=== PATIENT | female | born 1955 | race Caucasian/White ===

== ENCOUNTER 2023-09-20 07:00 | Day surgery (SDC) | payer MEDICARE, BC ==
[~2023-09-20] VITALS: Ht 167.6 cm; Wt 59.0 kg
[2023-09-20] VITALS (8 sets, daily range): BP systolic 102–116; BP diastolic 63–73; PULSE 72–84; RESP 13–21; TEMP 97.8; O2SAT 93–99
[~2023-09-20 07:00] MED LIST: ACYC200C22 PO; ASPI-543 PO; BIOT1SUB SL; COEN150C4 PO; CYAN1TAB11 PO; FLAX100024 PO; LACTCAP35 PO; METO25TA93 PO; MISC1TAB PO; MULT-1179 PO; OMEP1CAP70 PO; POLYSOL2 EACHEYE; POM; ROSU5TAB5 PO; SILD20TA12 PO; TURM500C3 PO
[2023-09-20] MEDS ORDERED: LIDOCAINE 2%HCL (LOCAL ANESTH.) INJ 20ML MDV ONE ×2 (07:39→10:04)
[2023-09-20] MEDS ORDERED: IOHEXOL 350 MG/ML 100ML IJ ONE (07:40)
[2023-09-20] MEDS ORDERED: HEPARIN IN NS 1000Units/500mL 1,500 ML ONE (07:40)
[2023-09-20] MEDS ORDERED: IODIXANOL 320MG/ML 100ML BTL IV ONE ×2 (07:40→10:04)
[2023-09-20] MEDS ORDERED: HEPARIN SODIUM (PORCINE) 5000 UNITS/ML 1ML VIAL ONE (10:03)
[2023-09-20] MEDS ORDERED: VERAPAMIL 2.5MG/ML INJ 2ML VIAL IV ONE (10:03)
[2023-09-20] MEDS ORDERED: ANGIOMAX 250 MG VIAL IV ONE (10:03)
[2023-09-20] MEDS ORDERED: SODIUM CHL 0.9% 0 ML ONE (10:04)
[2023-09-20] MEDS ORDERED: fentaNYL CITRATE 100 MCG/2 ML VL ONE (10:04)
[2023-09-20] MEDS ORDERED: MIDAZOLAM HCL 2MG/2ML 2ml VIAL (1mg/ml) ONE (10:04)
== END 2023-09-20 13:38 | disposition home or self-care (01) ==
LOC: CATH 07:00
PROVIDERS: ATTEND Internal Medicine Cardiovascular Disease
DX: I25.10 Atherosclerotic heart disease of native coronary artery without angina pectoris (principal); K21.9 Gastro-esophageal reflux disease without esophagitis; E78.5 Hyperlipidemia, unspecified; E03.9 Hypothyroidism, unspecified; I12.9 Hypertensive chronic kidney disease with stage 1 through stage 4 chronic kidney disease, or unspecified chronic kidney disease; N18.9 Chronic kidney disease, unspecified; Z86.718 Personal history of other venous thrombosis and embolism; Z79.82 Long term (current) use of aspirin; Z88.1 Allergy status to other antibiotic agents; Z88.5 Allergy status to narcotic agent; Z79.899 Other long term (current) drug therapy; Z98.890 Other specified postprocedural states
CPT/HCPCS: 93460; C1757; C1769; C1894; J1644; J2250; J3010; Q9967; 99152